=== PATIENT | male | born 1955 | race Caucasian/White ===

== ENCOUNTER → 2020-03-24 09:05 | Outpatient (REF) | payer OTHER, SELFPAY ==
--- NOTE | 2020-03-24 | NM_ITS ---
Myocardial perfusion study Indication: Chest pain to evaluate for myocardial ischemia Technique: The patient was brought in for a Lexiscan perfusion study on 03/24/2020. Patient performed low-level exercise and was injected 0.4 mg of Lexiscan intravenously. Within a minute of injection, 30 mCi of sestamibi was given intravenously. Images were obtained using the SPECT gamma camera interlaced with the gating device. Images were obtained in supine position. Resting perfusion study was performed on 03/28/2020. Patient was administered 30 mCi of sestamibi intravenously at rest. Images were then obtained in supine position. Images obtained with and without CT attenuation. Total DLP 76 mGy-cm. Images were processed with the software and compared side to side in short axis, horizontal long axis and vertical long axis views. Findings: The stress perfusion study showed non attenuated images show moderately reduced uptake in the inferoapical area of myocardium and mildly reduced uptake in the rest of the inferior wall of the LV myocardium. Attenuation corrected images show mildly reduced uptake in the distal septum and distal anterior wall and the apex of the LV myocardium.. The gated study shows low normal LV systolic function with calculated LVEF of 50%. LV cavity is mildly dilated size. The gated study shows normal wall thickening and contraction of segments. Resting study shows non attenuated images show mildly improved uptake in the inferoapical area of the LV myocardium. Attenuated corrected images show moderately reduced uptake in the distal anterior, apex and inferoapical wall of the LV myocardium.. Gating at rest reveals normal systolic wall motion with ejection fraction at 54%. The findings are consistent with equivocal for possible inferoapical ischemia.. NM/NM nestor perf SPECT rest & str Impression: 1. Myocardial perfusion imaging study shows equivocal finding for apical ischemia 2. Gated LVEF is 54% 3. Transient ischemic dilatation not present EKG is nondiagnostic for ischemia
--- NOTE | 2020-03-24 10:17 | CA_ITS ---
Acquisition Time: 2020-03-24 10:19:46 Total Exercise Time: 00:02:00 Test Indications: Chest Pain Medications: Protocol: LEXISCAN Max HR: 100 BPM 64% of Pred: 155 BPM Max BP: 130/078 mmHG Max Work Load: 1.0 METS Pharmacological stress test using Lexiscan while sitting and kicking his feet. Pt tolerated well, denies any anginal sx. EKG without any arrhythmias, non-diagnostic for ischemia. Nuclear images to follow. Normotensive response to test. Test reviewed with Dr. Bennett. Referred By: Shae Aleman Overread By: Jericho Flores
== END ==
LOC: HO.CARD 09:05
PROVIDERS: Visit Provider Physician Assistant Medical
DX: R07.9 Chest pain, unspecified (principal)
CPT/HCPCS: 78452; 93017; A9500; J0280; J2785

== ENCOUNTER 2020-07-14 09:21 | Outpatient (REF) | payer OTHER, SELFPAY ==
--- NOTE | ~2020-07-14 | US_ITS ---
EXAMINATION: US RETROPERITONEAL LIMITED (AORTA) CLINICAL INFORMATION: Nicotine dependence. PVD. COMPARISON: None TECHNIQUE: Pierce-scale, color Doppler and spectral Doppler evaluation of the abdominal aorta. FINDINGS: The aorta is normal. The measurements of the aorta in maximum AP and transverse dimensions respectively are as follows: Proximal: 2.3 x 2.7 cm. Mid: 2.2 x 2.3 cm. Distal: 2.5 x 2.2 cm. PSV: 107 cm/s. The measurements of the common iliac arteries in maximum AP and TRV dimensions are as follows: Right: AP: 1.7 cm. TRV: 1.6 cm. Left: AP: 1.5 cm. TRV: 1.5 cm. US/US aorta IMPRESSION: No evidence of abdominal aortic aneurysm. Both common iliac arteries are normal caliber.
== END 2020-07-14 09:22 | disposition home or self-care (01) ==
LOC: HO.US 09:21
PROVIDERS: PCP Nurse Practitioner Primary Care; Visit Provider Nurse Practitioner Primary Care
DX: Z13.6 Encounter for screening for cardiovascular disorders (principal); I73.9 Peripheral vascular disease, unspecified; F17.200 Nicotine dependence, unspecified, uncomplicated
CPT/HCPCS: 76775

== ENCOUNTER → 2020-08-15 07:31 | Outpatient (BNVA) | payer OTHER, SELFPAY | PROVIDERS: Visit Provider Physician Assistant | DX: Z13.89 Encounter for screening for other disorder (principal) | CPT/HCPCS: Q3014 ==

== ENCOUNTER → 2020-09-20 09:32 | Day surgery (SDC) | payer OTHER, SELFPAY ==
[2020-09-13 14:21] VITALS: BMI 31.9
--- NOTE | 2020-09-16 10:29 | P.CONAN_ITS ---
Documented by User: Selina Taina 09/16/20 12:26 HPI - Anesthesia Eval Consult details Narrative: 65yo M for Colonoscopy Cardiac cleared @ intermed risk PMFSH Active Problems Active Problems: All Active Problems (Updated 09/13/20 @ 14:37 by Fariba Terrell) Encounter for screening colonoscopy (Acute) Poor historian (Acute) HTN (hypertension) (Acute) Past Medical History Medical History (Updated 09/20/20 @ 10:42 by Phylicia López) Anxiety and depression Asthma CAD (coronary artery disease) COPD (chronic obstructive pulmonary disease) Elevated cholesterol Hip pain HTN (hypertension) STEVE (obstructive sleep apnea) Surgical History Surgical History (Updated 09/13/20 @ 14:38 by Fariba Terrell) Hx of bilateral inguinal hernia repair Social History Social History (Updated 09/20/20 @ 10:36 by Phylicia López) Household Members: None Alcohol intake: current Alcohol intake frequency: holidays/special occasions only Cigarettes Per Day: 3 Substance Use Type: Marijuana Last Used Substance: Hours (ago) Last Used Substance Other:: yesterday Are you DNR?: No Advance Directives: No Advance Directives Information Provided: No Advance Directives on File: No Current occupational status: disabled Meds Allergies Allergy/AdvReac Type Severity Reaction Status Date / Time No Known Allergies Allergy Verified 09/13/20 14:28 Home Medications Medication Instructions Recorded Confirmed Last Taken Type albuterol sulfate 90 mcg/actuation 2 puff PO Q4-6H PRN 08/15/20 09/13/20 Unknown History aerosol inhaler aspirin 81 mg tablet,delayed 81 mg PO QAM 08/15/20 09/13/20 Unknown History release bupropion HCl 150 mg tablet,12 hr 150 mg PO DAILY 08/15/20 09/13/20 Unknown History sustained-release diltiazem HCl 120 mg 120 mg PO DAILY 08/15/20 09/13/20 Unknown History capsule,extended release 24 hr gabapentin 100 mg capsule 100 mg PO BEDTIME 08/15/20 09/13/20 Unknown History hydralazine 50 mg tablet 50 mg PO BID 08/15/20 09/13/20 Unknown History hydrochlorothiazide 25 mg tablet 25 mg PO DAILY 08/15/20 09/13/20 Unknown History isosorbide mononitrate 30 mg 30 mg PO DAILY 08/15/20 09/13/20 Unknown History tablet,extended release 24 hr lisinopril 30 mg tablet 30 mg PO DAILY 08/15/20 09/13/20 Unknown History rosuvastatin 10 mg tablet 10 mg PO BEDTIME 08/15/20 09/13/20 Unknown History sertraline 100 mg tablet 200 mg PO QAM 08/15/20 09/13/20 Unknown History tramadol 50 mg tablet 50 mg PO TID PRN 08/15/20 09/13/20 Unknown History trazodone 1 tab PO BEDTIME 09/13/20 09/13/20 Unknown History Exam Exam Date and Time: September 16, 2020 1029 Height,Weight and Vital Signs: Height 5 ft 6 in Weight 89.811 kg Narrative Narrative: Echo 12/2019 Nml LV size and wall thickness EF 45-50% Normal diastolic filling pattern Erin mildly hypokinetic Trace MR Mild TR NM nestor perf SPECT rest & str 03/2020 Impression: 1. Myocardial perfusion imaging study shows equivocal finding for apical ischemia 2. Gated LVEF is 54% 3. Transient ischemic dilatation not present EKG is nondiagnostic for ischemia US aorta 06/2020 IMPRESSION: No evidence of abdominal aortic aneurysm. Both common iliac arteries are normal caliber. Assessment and Plan Assessment Anesthesia Assessment: Chart Reviewed Documented by User: Phylicia López 09/20/20 10:48 [facility] Past Medical History Medical History (Updated 09/20/20 @ 10:42 by Phylciia López) Anxiety and depression Asthma CAD (coronary artery disease) COPD (chronic obstructive pulmonary disease) Elevated cholesterol Hip pain HTN (hypertension) STEVE (obstructive sleep apnea) Family History Family history of problems with anesthesia: No Surgical History Surgical History (Updated 09/13/20 @ 14:38 by Fariba Terrell) Hx of bilateral inguinal hernia repair History of Problems with Anesthesia: No Social History Social History (Updated 09/20/20 @ 10:36 by Phylicia López) Household Members: None Alcohol intake: current Alcohol intake frequency: holidays/special occasions o nly Cigarettes Per Day: 3 Substance Use Type: Marijuana Last Used Substance: Hours (ago) Last Used Substance Other:: yesterday Are you DNR?: No Advance Directives: No Advance Directives Information Provided: No Advance Directives on File: No Current occupational status: disabled Meds Allergies Allergy/AdvReac Type Severity Reaction Status Date / Time No Known Allergies Allergy Verified 09/13/20 14:28 Home Medications Medication Instructions Recorded Confirmed Last Taken Type albuterol sulfate 90 mcg/actuation 2 puff PO Q4-6H PRN 08/15/20 09/13/20 Unknown History aerosol inhaler aspirin 81 mg tablet,delayed 81 mg PO QAM 08/15/20 09/13/20 Unknown History release bupropion HCl 150 mg tablet,12 hr 150 mg PO DAILY 08/15/20 09/13/20 Unknown History sustained-release diltiazem HCl 120 mg 120 mg PO DAILY 08/15/20 09/13/20 Unknown History capsule,extended release 24 hr gabapentin 100 mg capsule 100 mg PO BEDTIME 08/15/20 09/13/20 Unknown History hydralazine 50 mg tablet 50 mg PO BID 08/15/20 09/13/20 Unknown History hydrochlorothiazide 25 mg tablet 25 mg PO DAILY 08/15/20 09/13/20 Unknown History isosorbide mononitrate 30 mg 30 mg PO DAILY 08/15/20 09/13/20 Unknown History tablet,extended release 24 hr lisinopril 30 mg tablet 30 mg PO DAILY 08/15/20 09/13/20 Unknown History rosuvastatin 10 mg tablet 10 mg PO BEDTIME 08/15/20 09/13/20 Unknown History sertraline 100 mg tablet 200 mg PO QAM 08/15/20 09/13/20 Unknown History tramadol 50 mg tablet 50 mg PO TID PRN 08/15/20 09/13/20 Unknown History trazodone 1 tab PO BEDTIME 09/13/20 09/13/20 Unknown History Exam Narrative Narrative: Patient was eating all day yesterday. Unclear what or how much he has had today. Claims was not told not to eat. Wants to know what the effects of eating and drinking are. Fleets enema ordered by Dr Quezada. Patient still with solid formed stool. Procedure rescheduled Airway Mallampati Class: II TM Dist: >3cm Neck ROM: Full Loose/Missing/Broken Teeth: Yes (Many missing. Many loose) Heart: RRR ?extra beats Lungs: CTAB Assessment and Plan Assessment Anesthesia Assessment: Anesthesia Plan Discussed and Chart Reviewed Final Anesthetic Review NPO: Yes ASA Class: III Final Preanesthetic Review: No Changes in Pt Med Stat, Meds/Allgs Chart Reviewed, Consent Obtained/Reviewed and Anes Risks/Benef Reviewed Patient Risk: Intermediate Procedure Risk: Low Assessment/Block/Sedation in SS: Assess/Block/Sedation-SS Anesthetic Plan Anesthetic Plan: MAC: Disposition: Standard PACU
--- NOTE | 2020-09-20 10:56 | PC.NURSE ---
Patient arrived at [facility] for procedure. In waiting room he had a water bottle in hand. When asked, he stated he was finishing his prep. When asked how much he drank since midnight patient was very unclear with answers- stated 15 cups, then stated 24 oz. When asked by anesthesia, he stated 8oz. Patient also stated he had rice and beans at 8pm last night. Dr. Byers, Dr. Quezada, and PREMA Hidalgo notified. New order for Enema and to wait until 1130 (2 hours NPO) for procedure to begin. Enema given, tolerated well. Output formed brown stool. Dr. Quezada notified. New order for patient to reschedule. This explained to patient at length. Patient to reschedule procedure. Instructional Designer used for entire intake and discharge.
== END ==
PROVIDERS: PCP Nurse Practitioner Primary Care; Visit Provider Internal Medicine Gastroenterology
DX: Z12.11 Encounter for screening for malignant neoplasm of colon (principal); Z53.8 Procedure and treatment not carried out for other reasons; G47.33 Obstructive sleep apnea (adult) (pediatric); I10 Essential (primary) hypertension; J45.909 Unspecified asthma, uncomplicated; F17.210 Nicotine dependence, cigarettes, uncomplicated; F12.90 Cannabis use, unspecified, uncomplicated

== ENCOUNTER 2020-10-06 09:40 | Outpatient (REF) | payer OTHER, SELFPAY ==
--- NOTE | ~2020-10-06 | XR_ITS ---
EXAMINATION: XR HIP, RIGHT CLINICAL INFORMATION: Pain. COMPARISON: None TECHNIQUE: Two views of the right hip. FINDINGS: There is loss of right hip joint space with periarticular spurring. No bony erosive changes. No visible acute fracture, dislocation or lytic process seen. The paravertebral soft tissues are normal. XR/XR hip RT min 2V IMPRESSION: Mild degenerative changes right hip joint. No visible acute fracture, dislocation or subluxation seen.
== END 2020-10-06 09:41 | disposition home or self-care (01) ==
LOC: HO.XRAY 09:40
PROVIDERS: PCP Internal Medicine Geriatric Medicine; Visit Provider Internal Medicine Geriatric Medicine
DX: M25.551 Pain in right hip (principal)
CPT/HCPCS: 73502

== ENCOUNTER 2023-09-06 09:53 | Outpatient (REF) | payer OTHER, SELFPAY ==
[2023-09-06 11:42] LABS: MANUAL DIFF FLAG NO
[2023-09-06 12:03] LABS: Basophils Absolute Auto 0.1 X10*3/uL (0.0-0.2); Basophils Percent Auto 0.5 % (0-2); Eosinophils Absolute Auto 0.2 X10*3/uL (0.0-0.4); Eosinophils Percent Auto 2.1 % (0-4); Hematocrit 45.1 % (42.0-52.0); Hemoglobin 15.4 g/dl (14.0-18.0); Imm Gran Abs Auto 0.06 X10*3/uL (0.00-0.03); Imm Gran Pct Auto 0.6 % (0.0-0.4); Lymphocytes Absolute Auto 2.2 X10*3/uL (1.2-4.9); Lymphocytes Percent Auto 20.9 % (20-40); Mean Corpuscular HGB Conc 34.1 g/dl (31.0-36.0); Mean Corpuscular Hemoglobin 32.8 pg (27.0-33.0); Mean Corpuscular Volume 96.2 fL (80.0-98.0); Mean Platelet Volume 11.2 fL (9.4-12.4); Monocytes Absolute Auto 0.9 X10*3/uL (0.1-1.2); Monocytes Percent Auto 8.9 % (2-11); Platelet Count 258 X10*3/uL (160-400); Red Blood Count 4.69 X10*6/uL (4.60-5.80); Red Cell Distribution Width 13.3 % (11.0-16.0); White Blood Count 10.4 X10*3/uL (4.8-10.8)
[2023-09-06 13:54] LABS: Alanine Aminotransferase 29 U/L (0-40); Albumin Level 4.2 g/dL (3.5-5.0); Alkaline Phosphatase 88 U/L (39-117); Anion Gap 16 (12-20); Aspartate Amino Transferase 30 U/L (5-37); Bilirubin Total 0.8 mg/dL (0.0-1.0); Blood Urea Nitrogen 9 mg/dL (9-16); Carbon Dioxide 23 mmol/L (22-29); Chloride 103 mmol/L (96-108); Cholesterol 176 mg/dL (<200); Estimated Glomerular Filt Rate > 60; Glucose Random 101 mg/dL (60-115); HDL Cholesterol 78 mg/dL (>40); LDL Cholesterol Calculated 86 mg/dL (<100); Potassium 4.6 mmol/L (3.3-5.1); Sodium 137 mmol/L (135-145); Total Protein 7.3 g/dL (6.5-8.0); Triglycerides 61 mg/dL (<150)
== END 2023-09-06 09:54 | disposition home or self-care (01) ==
LOC: HO.HHCL 09:53
PROVIDERS: Visit Provider Internal Medicine Geriatric Medicine
DX: I10 Essential (primary) hypertension (principal); Z79.899 Other long term (current) drug therapy
CPT/HCPCS: 36415; 80053; 80061; 85025

== ENCOUNTER 2023-12-13 13:56 | Outpatient (REF) | payer OTHER, SELFPAY ==
[2023-12-13 16:45] LABS: Prostate Specific Antigen 2.47 ng/mL (<0.05-4.0)
== END 2023-12-13 13:57 | disposition home or self-care (01) ==
LOC: HO.HHCL 13:56
PROVIDERS: Visit Provider Internal Medicine Geriatric Medicine
DX: Z12.5 Encounter for screening for malignant neoplasm of prostate (principal)
CPT/HCPCS: 36415; 84153